=== PATIENT | male | born 1955 | race Caucasian/White ===

== ENCOUNTER → 2018-06-27 | Emergency (ER) | payer OTHER ==
[2018-06-27 09:57] LABS: ADD MAN DIFF? NO
[2018-06-27] MEDS: morphine 4 MG/ML VIAL IV (09:57)
[2018-06-27] MEDS: SOD CHLORIDE 0.9% 1,000 ML IV (09:57)
[2018-06-27] MEDS: ONDANSETRON 4 MG INJ IV (09:57)
[2018-06-27 09:58] LABS: BASOPHIL # 0.1 10^3/ul (0.0-0.1); BASOPHILS % 1.2 % (0.0-2.0); EOSINOPHILS # 0.4 10^3/ul (0.0-0.5); HEMATOCRIT 34.7 % (42.0-52.0); HEMOGLOBIN 11.1 g/dl (14.0-18.0); LYMPHOCYTES # 0.7 10^3/ul (0.8-2.9); LYMPHOCYTES % 10.8 % (15.0-51.0); MEAN CORPUSCULAR HEMOGLOBIN 31.3 pg (29.0-33.0); MEAN CORPUSCULAR VOLUME 97.7 fl (82.0-101.0); MEAN PLATELET VOLUME 9.5 fl (7.4-10.4); MONOCYTE # 0.7 10^3/ul (0.3-0.9); MONOCYTES % 10.7 % (0.0-11.0); NEUTROPHIL # 4.7 10^3/ul (1.6-7.5); NEUTROPHILS % 70.8 % (39.0-77.0); PLATELET COUNT 236 10^3/UL (140-415); RED BLOOD COUNT 3.55 10^6/ul (4.70-6.10); RED CELL DISTRIBUTION WIDTH 15.3 % (11.5-14.5)
[2018-06-27 09:58] LABS: WHITE BLOOD COUNT 6.7 10^3/ul (4.8-10.8)
[2018-06-27 10:18] LABS: INR 1.38; PROTIME 17.2 Sec (11.9-14.9); PT RATIO 1.3
[2018-06-27 10:27] LABS: ALANINE AMINOTRANSFERASE 29 IU/L (13-69); ALBUMIN 3.5 g/dl (3.3-4.9); ALBUMIN/GLOBULIN RATIO 0.94; ALKALINE PHOSPHATASE 70 IU/L (42-121); AMYLASE 49 U/L (11-123); ANION GAP 10 (8-16); ASPARTATE AMINO TRANSFERASE 22 IU/L (15-46); BILIRUBIN,INDIRECT 0.8 mg/dl (0-1.1); BILIRUBIN,TOTAL 0.8 mg/dl (0.2-1.3); BLOOD UREA NITROGEN 22 mg/dl (7-20); CALCIUM 8.8 mg/dl (8.4-10.2); CARBON DIOXIDE 21 mmol/L (21-31); CHLORIDE 114 mmol/L (97-110); CREATININE 1.25 mg/dl (0.61-1.24); GLUCOSE 104 mg/dl (70-220); LIPASE 46 U/L (23-300); POTASSIUM 4.4 mmol/L (3.5-5.1); SODIUM 141 mmol/L (135-144); TOTAL PROTEIN 7.2 g/dl (6.1-8.1)
[2018-06-27 10:37] LABS: TROPONIN-I 0.016 ng/ml (0.000-0.120)
== END | disposition home or self-care (01) ==
LOC: E/R 08:19
DX: N20.0 Calculus of kidney (principal); R40.2252 Coma scale, best verbal response, oriented, at arrival to emergency department; F17.210 Nicotine dependence, cigarettes, uncomplicated; I10 Essential (primary) hypertension; R40.2142 Coma scale, eyes open, spontaneous, at arrival to emergency department; R40.2362 Coma scale, best motor response, obeys commands, at arrival to emergency department; Z79.82 Long term (current) use of aspirin; Z95.0 Presence of cardiac pacemaker
CPT/HCPCS: 74176; 80053; 82150; 83690; 84484; 85025; 85610; 85730; 93005; 96361; 96374; 96375; 99285-25

== ENCOUNTER 2018-07-14 20:42 | Inpatient (IN) | payer OTHER ==
[2018-07-14 21:37] LABS: ADD MAN DIFF? NO
[2018-07-14 21:40] LABS: BASOPHIL # 0.1 10^3/ul (0.0-0.1); EOSINOPHILS # 0.6 10^3/ul (0.0-0.5); EOSINOPHILS % 7.6 % (0.0-7.0); HEMATOCRIT 39.1 % (42.0-52.0); HEMOGLOBIN 12.2 g/dl (14.0-18.0); LYMPHOCYTES % 11.7 % (15.0-51.0); MEAN CORPUSCULAR HGB CONC 31.2 g/dl (32.0-37.0); MEAN CORPUSCULAR VOLUME 96.1 fl (82.0-101.0); MEAN PLATELET VOLUME 9.9 fl (7.4-10.4); MONOCYTES % 12.6 % (0.0-11.0); NEUTROPHIL # 5.5 10^3/ul (1.6-7.5); NEUTROPHILS % 66.7 % (39.0-77.0); PLATELET COUNT 279 10^3/UL (140-415); RED BLOOD COUNT 4.07 10^6/ul (4.70-6.10); RED CELL DISTRIBUTION WIDTH 14.1 % (11.5-14.5)
[2018-07-14 21:40] LABS: WHITE BLOOD COUNT 8.3 10^3/ul (4.8-10.8)
[2018-07-14 22:02] LABS: ANION GAP 13 (8-16); BLOOD UREA NITROGEN 31 mg/dl (7-20); CALCIUM 9.2 mg/dl (8.4-10.2); CARBON DIOXIDE 29 mmol/L (21-31); CHLORIDE 103 mmol/L (97-110); CREATININE 1.06 mg/dl (0.61-1.24); GLUCOSE 209 mg/dl (70-220); SODIUM 140 mmol/L (135-144)
[2018-07-14] MEDS: NITROGLYCERIN (SL) 0.4 MG TAB SL (22:02)
[2018-07-14] MEDS: ASPIRIN 325 MG TAB PO (22:02)
[2018-07-14 22:13] LABS: B-TYPE NATRIURETIC PEPTIDE 8150 PG/ML (0-125); TROPONIN-I < 0.012 ng/ml (0.000-0.120)
[2018-07-14 22:16] LABS: POTASSIUM 5.4 mmol/L (3.5-5.1)
[2018-07-14 23:08] LABS: URINE BLOOD (Dip) POC Negative (NEGATIVE); URINE GLUCOSE (Dip) POC Negative (NEGATIVE); URINE KETONES (Dip) POC Negative (NEGATIVE); URINE LEUKOCYTE EST (Dip) POC Negative (NEGATIVE); URINE NITRITE (Dip) POC Negative (NEGATIVE); URINE TOTAL PROTEIN POC 1+ (NEGATIVE)
[2018-07-14] MEDS: FUROSEMIDE 20 MG INJ IV (23:18)
[2018-07-14] MEDS ORDERED: ONDANSETRON 4 MG INJ IV (23:30)
[2018-07-14] MEDS ORDERED: morphine 2 MG INJ IV (23:30)
[2018-07-14] MEDS ORDERED: NACL 0.9% 3 ML SYG IV (23:30)
[2018-07-14] MEDS ORDERED: BISACODYL (EC) 5 MG TAB PO (23:30)
[2018-07-14] MEDS ORDERED: ACETAMINOPHEN 325 MG TAB PO (23:30)
[2018-07-14] MEDS ORDERED: NITROGLYCERIN (SL) 0.4 MG TAB SL (23:30)
[2018-07-14] MEDS ORDERED: DOCUSATE SODIUM 100 MG CAP PO (23:30)
[2018-07-15 03:34] LABS: ADD MAN DIFF? NO
[2018-07-15 03:57] LABS: ALANINE AMINOTRANSFERASE 32 IU/L (13-69); ALBUMIN 3.5 g/dl (3.3-4.9); ALBUMIN/GLOBULIN RATIO 0.92; ALKALINE PHOSPHATASE 67 IU/L (42-121); ANION GAP 14 (8-16); ASPARTATE AMINO TRANSFERASE 31 IU/L (15-46); BILIRUBIN,INDIRECT 0.5 mg/dl (0-1.1); BILIRUBIN,TOTAL 0.5 mg/dl (0.2-1.3); BLOOD UREA NITROGEN 33 mg/dl (7-20); CALCIUM 9.1 mg/dl (8.4-10.2); CARBON DIOXIDE 29 mmol/L (21-31); CHLORIDE 101 mmol/L (97-110); CHOL/HDL RATIO 2.5 RATIO; CHOLESTEROL 109 mg/dl (100-200); CREATINE KINASE 36 IU/L (23-200); CREATININE 1.05 mg/dl (0.61-1.24); GLUCOSE 189 mg/dl (70-220); HDL CHOLESTEROL 43 mg/dl (30-78); LDL CHOLESTEROL,CALCULATED 59 mg/dl; MAGNESIUM 2.2 mg/dl (1.7-2.5); SODIUM 139 mmol/L (135-144); TOTAL PROTEIN 7.3 g/dl (6.1-8.1); TRIGLYCERIDES 37 mg/dl (0-149)
[2018-07-15] MEDS ORDERED: DEXTROSE 50% 50 ML SYRINGE IV ×2 (04:00)
[2018-07-15] MEDS ORDERED: GLUCOSE GEL 15 GRAM TUBE BUCCAL (04:00)
[2018-07-15] MEDS ORDERED: GLUCOSE GEL 15 GRAM TUBE PO ×2 (04:00)
[2018-07-15] MEDS ORDERED: GLUCAGON 1 MG INJ IM (04:00)
[2018-07-15 04:07] LABS: WHITE BLOOD COUNT 7.4 10^3/ul (4.8-10.8)
[2018-07-15 04:07] LABS: BASOPHIL # 0.1 10^3/ul (0.0-0.1); BASOPHILS % 1.2 % (0.0-2.0); EOSINOPHILS # 0.6 10^3/ul (0.0-0.5); EOSINOPHILS % 7.7 % (0.0-7.0); HEMATOCRIT 35.7 % (42.0-52.0); HEMOGLOBIN 11.2 g/dl (14.0-18.0); LYMPHOCYTES % 13.1 % (15.0-51.0); MEAN CORPUSCULAR HEMOGLOBIN 30.1 pg (29.0-33.0); MEAN CORPUSCULAR HGB CONC 31.4 g/dl (32.0-37.0); MONOCYTES % 13.9 % (0.0-11.0); NEUTROPHIL # 4.7 10^3/ul (1.6-7.5); NEUTROPHILS % 63.8 % (39.0-77.0); PLATELET COUNT 257 10^3/UL (140-415); RED BLOOD COUNT 3.72 10^6/ul (4.70-6.10)
[2018-07-15 04:09] LABS: CK INDEX 2.6; CK-MB 0.95 ng/ml (0.0-2.4); TROPONIN-I < 0.012 ng/ml (0.000-0.120)
[2018-07-15] MEDS ORDERED: ONDANSETRON (ODT) 4 MG TAB ODT (06:30)
[2018-07-15] MEDS: MULTIVIT/CA CARB/B CMPLX/FA TAB PO (08:45)
[2018-07-15] MEDS: FERROUS SULFATE (EC) 325 MG TAB PO (08:45)
[2018-07-15] MEDS: DOCUSATE SODIUM 100 MG CAP PO ×3 (08:45→20:23)
[2018-07-15] MEDS: ASPIRIN (EC) 81 MG TAB PO (08:45)
[2018-07-15] MEDS: INSULIN ASPART [NOVOLOG] 3 ML PEN SC ×4 (08:50→20:44)
[2018-07-15 10:44] LABS: CREATINE KINASE 52 IU/L (23-200)
[2018-07-15 10:57] LABS: CK INDEX 2.3; CK-MB 1.19 ng/ml (0.0-2.4)
[2018-07-15] MEDS ORDERED: morphine LIQ (10 MG/5 ML) CUP PO (17:00)
[2018-07-15] MEDS: FUROSEMIDE 20 MG INJ IV (17:54)
[2018-07-15] MEDS: LISINOPRIL 5 MG TAB PO (17:55)
[2018-07-15] MEDS: ATORVASTATIN 20 MG TAB PO (20:24)
[2018-07-16] MEDS: ACCU-CHEK XX (02:37)
[2018-07-16 05:49] LABS: ADD MAN DIFF? NO
[2018-07-16 05:58] LABS: BASOPHIL # 0.1 10^3/ul (0.0-0.1); BASOPHILS % 1.1 % (0.0-2.0); EOSINOPHILS # 0.6 10^3/ul (0.0-0.5); EOSINOPHILS % 8.3 % (0.0-7.0); HEMATOCRIT 36.8 % (42.0-52.0); HEMOGLOBIN 11.7 g/dl (14.0-18.0); LYMPHOCYTES # 0.9 10^3/ul (0.8-2.9); LYMPHOCYTES % 12.4 % (15.0-51.0); MEAN CORPUSCULAR HEMOGLOBIN 29.8 pg (29.0-33.0); MEAN CORPUSCULAR HGB CONC 31.8 g/dl (32.0-37.0); MEAN CORPUSCULAR VOLUME 93.9 fl (82.0-101.0); MEAN PLATELET VOLUME 10.3 fl (7.4-10.4); MONOCYTE # 0.8 10^3/ul (0.3-0.9); MONOCYTES % 11.5 % (0.0-11.0); NEUTROPHIL # 4.7 10^3/ul (1.6-7.5); NEUTROPHILS % 66.3 % (39.0-77.0); PLATELET COUNT 257 10^3/UL (140-415); RED BLOOD COUNT 3.92 10^6/ul (4.70-6.10); RED CELL DISTRIBUTION WIDTH 14.1 % (11.5-14.5)
[2018-07-16 05:58] LABS: WHITE BLOOD COUNT 7.1 10^3/ul (4.8-10.8)
[2018-07-16 06:29] LABS: CREATINE KINASE 46 IU/L (23-200)
[2018-07-16 06:31] LABS: FREE T4 (FREE THYROXINE) 1.19 ng/dl (0.78-2.44)
[2018-07-16 06:31] LABS: B-TYPE NATRIURETIC PEPTIDE 7530 PG/ML (0-125)
[2018-07-16 06:33] LABS: ALANINE AMINOTRANSFERASE 28 IU/L (13-69); ALBUMIN 3.5 g/dl (3.3-4.9); ALBUMIN/GLOBULIN RATIO 0.87; ALKALINE PHOSPHATASE 69 IU/L (42-121); ANION GAP 12 (8-16); ASPARTATE AMINO TRANSFERASE 30 IU/L (15-46); BLOOD UREA NITROGEN 30 mg/dl (7-20); CALCIUM 9.2 mg/dl (8.4-10.2); CARBON DIOXIDE 31 mmol/L (21-31); CHLORIDE 100 mmol/L (97-110); CHOL/HDL RATIO 2.9 RATIO; CHOLESTEROL 118 mg/dl (100-200); GLUCOSE 144 mg/dl (70-220); HDL CHOLESTEROL 40 mg/dl (30-78); LDL CHOLESTEROL,CALCULATED 63 mg/dl; MAGNESIUM 2.2 mg/dl (1.7-2.5); POTASSIUM 4.1 mmol/L (3.5-5.1); SODIUM 139 mmol/L (135-144); TOTAL PROTEIN 7.5 g/dl (6.1-8.1); TRIGLYCERIDES 74 mg/dl (0-149)
[2018-07-16 06:48] LABS: CK-MB 0.93 ng/ml (0.0-2.4); TROPONIN-I 0.027 ng/ml (0.000-0.120)
[2018-07-16] MEDS: INSULIN ASPART [NOVOLOG] 3 ML PEN SC ×4 (08:00→20:49)
[2018-07-16] MEDS: DOCUSATE SODIUM 100 MG CAP PO ×3 (09:00→20:46)
[2018-07-16] MEDS ORDERED: POLYMYXIN/BACITRACIN 1L IRRIG (11:05)
[2018-07-16] MEDS ORDERED: CEFAZOLIN 1 GM/50 ML (PMX) 100 ML IVPB (11:21)
[2018-07-16] MEDS ORDERED: MIDAZOLAM 1 MG/ML 2 ML INJ (11:21)
[2018-07-16] MEDS ORDERED: FENTAnyl 50 MCG/ML VIAL (11:21)
[2018-07-16] MEDS ORDERED: LIDOCAINE 1%/EPI 30 ML INJ (11:21)
[2018-07-16] MEDS ORDERED: HYDROmorphONE 2 MG/ML SYG (11:44)
[2018-07-16] MEDS ORDERED: morphine 2 MG INJ IV (12:30)
[2018-07-16] MEDS: FUROSEMIDE 20 MG INJ IV (17:49)
[2018-07-16] MEDS: ASPIRIN (EC) 81 MG TAB PO (17:49)
[2018-07-16] MEDS: MULTIVIT/CA CARB/B CMPLX/FA TAB PO (17:50)
[2018-07-16] MEDS: LISINOPRIL 5 MG TAB PO (17:51)
[2018-07-16] MEDS: FERROUS SULFATE (EC) 325 MG TAB PO (17:51)
[2018-07-16] MEDS: CEFAZOLIN 1 GM/50 ML (PMX) 50 ML IVPB ×2 (17:51→20:54)
[2018-07-16] MEDS: ATORVASTATIN 20 MG TAB PO (20:46)
[2018-07-17] MEDS: ACCU-CHEK XX (02:00)
[2018-07-17] MEDS: LORAZEPAM 0.5 MG TAB PO (03:33)
[2018-07-17] MEDS: CEFAZOLIN 1 GM/50 ML (PMX) 50 ML IVPB (05:50)
[2018-07-17 06:15] LABS: ADD MAN DIFF? NO
[2018-07-17 06:17] LABS: WHITE BLOOD COUNT 8.2 10^3/ul (4.8-10.8)
[2018-07-17 06:17] LABS: BASOPHIL # 0.1 10^3/ul (0.0-0.1); EOSINOPHILS # 0.5 10^3/ul (0.0-0.5); EOSINOPHILS % 6.3 % (0.0-7.0); HEMATOCRIT 38.1 % (42.0-52.0); HEMOGLOBIN 12.2 g/dl (14.0-18.0); LYMPHOCYTES # 0.9 10^3/ul (0.8-2.9); LYMPHOCYTES % 11.3 % (15.0-51.0); MEAN CORPUSCULAR HEMOGLOBIN 30.2 pg (29.0-33.0); MEAN CORPUSCULAR VOLUME 94.3 fl (82.0-101.0); MEAN PLATELET VOLUME 10.1 fl (7.4-10.4); MONOCYTES % 12.5 % (0.0-11.0); NEUTROPHIL # 5.7 10^3/ul (1.6-7.5); NEUTROPHILS % 68.7 % (39.0-77.0); PLATELET COUNT 270 10^3/UL (140-415); RED BLOOD COUNT 4.04 10^6/ul (4.70-6.10); RED CELL DISTRIBUTION WIDTH 13.9 % (11.5-14.5)
[2018-07-17 06:38] LABS: INR 1.23; PROTIME 15.7 Sec (11.9-14.9); PT RATIO 1.2
[2018-07-17 06:48] LABS: B-TYPE NATRIURETIC PEPTIDE 4640 PG/ML (0-125)
[2018-07-17 07:10] LABS: ALANINE AMINOTRANSFERASE 24 IU/L (13-69); ALBUMIN 3.7 g/dl (3.3-4.9); ALBUMIN/GLOBULIN RATIO 0.86; ALKALINE PHOSPHATASE 81 IU/L (42-121); ANION GAP 13 (8-16); ASPARTATE AMINO TRANSFERASE 32 IU/L (15-46); BILIRUBIN,INDIRECT 1.2 mg/dl (0-1.1); BILIRUBIN,TOTAL 1.2 mg/dl (0.2-1.3); BLOOD UREA NITROGEN 31 mg/dl (7-20); CALCIUM 9.2 mg/dl (8.4-10.2); CARBON DIOXIDE 31 mmol/L (21-31); CHLORIDE 100 mmol/L (97-110); CREATININE 0.93 mg/dl (0.61-1.24); GLUCOSE 121 mg/dl (70-220); MAGNESIUM 2.3 mg/dl (1.7-2.5); POTASSIUM 4.4 mmol/L (3.5-5.1); SODIUM 140 mmol/L (135-144)
[2018-07-17] MEDS: INSULIN ASPART [NOVOLOG] 3 ML PEN SC ×4 (08:00→20:48)
[2018-07-17] MEDS: REGADENOSON 0.4 MG/5 ML SYG (08:44)
[2018-07-17] MEDS: MULTIVIT/CA CARB/B CMPLX/FA TAB PO (09:40)
[2018-07-17] MEDS: ASPIRIN (EC) 81 MG TAB PO (09:40)
[2018-07-17] MEDS: FUROSEMIDE 20 MG INJ IV (09:40)
[2018-07-17] MEDS: FERROUS SULFATE (EC) 325 MG TAB PO (09:40)
[2018-07-17] MEDS: LISINOPRIL 5 MG TAB PO (09:40)
[2018-07-17] MEDS: DOCUSATE SODIUM 100 MG CAP PO ×3 (09:41→20:47)
[2018-07-17] MEDS ORDERED: LORAZEPAM 0.5 MG TAB PO (18:30)
[2018-07-17] MEDS: ATORVASTATIN 20 MG TAB PO (20:47)
[2018-07-18] MEDS: ACCU-CHEK XX (01:24)
[2018-07-18 06:20] LABS: ADD MAN DIFF? NO
[2018-07-18 06:31] LABS: BASOPHIL # 0.1 10^3/ul (0.0-0.1); BASOPHILS % 1.2 % (0.0-2.0); EOSINOPHILS # 0.6 10^3/ul (0.0-0.5); EOSINOPHILS % 7.4 % (0.0-7.0); HEMATOCRIT 38.5 % (42.0-52.0); HEMOGLOBIN 12.3 g/dl (14.0-18.0); LYMPHOCYTES # 0.9 10^3/ul (0.8-2.9); LYMPHOCYTES % 12.3 % (15.0-51.0); MEAN CORPUSCULAR HEMOGLOBIN 30.5 pg (29.0-33.0); MEAN CORPUSCULAR HGB CONC 31.9 g/dl (32.0-37.0); MEAN CORPUSCULAR VOLUME 95.5 fl (82.0-101.0); MEAN PLATELET VOLUME 10.2 fl (7.4-10.4); MONOCYTES % 13.1 % (0.0-11.0); NEUTROPHIL # 4.8 10^3/ul (1.6-7.5); NEUTROPHILS % 65.6 % (39.0-77.0); PLATELET COUNT 253 10^3/UL (140-415); RED BLOOD COUNT 4.03 10^6/ul (4.70-6.10); RED CELL DISTRIBUTION WIDTH 13.7 % (11.5-14.5)
[2018-07-18 06:31] LABS: WHITE BLOOD COUNT 7.4 10^3/ul (4.8-10.8)
[2018-07-18 06:50] LABS: ANION GAP 13 (8-16); BLOOD UREA NITROGEN 37 mg/dl (7-20); CALCIUM 9.1 mg/dl (8.4-10.2); CARBON DIOXIDE 29 mmol/L (21-31); CHLORIDE 102 mmol/L (97-110); CREATININE 1.09 mg/dl (0.61-1.24); GLUCOSE 109 mg/dl (70-220); POTASSIUM 4.5 mmol/L (3.5-5.1); SODIUM 139 mmol/L (135-144)
[2018-07-18] MEDS: INSULIN ASPART [NOVOLOG] 3 ML PEN SC (08:00)
[2018-07-18] MEDS: ASPIRIN (EC) 81 MG TAB PO (08:36)
[2018-07-18] MEDS: FERROUS SULFATE (EC) 325 MG TAB PO (08:36)
[2018-07-18] MEDS: DOCUSATE SODIUM 100 MG CAP PO (08:37)
[2018-07-18] MEDS: MULTIVIT/CA CARB/B CMPLX/FA TAB PO (08:37)
[2018-07-18] MEDS: LISINOPRIL 5 MG TAB PO ×2 (08:38→10:33)
[2018-07-18] MEDS: FUROSEMIDE 20 MG INJ IV (08:39)
[2018-07-18] MEDS ORDERED: LISINOPRIL 10 MG TAB PO (09:00)
[2018-07-18] MEDS ORDERED: FUROSEMIDE 40 MG TAB PO (09:00)
[2018-07-18] MEDS ORDERED: LISINOPRIL 5 MG TAB PO (09:00)
[2018-07-19] MEDS ORDERED: FUROSEMIDE 40 MG TAB PO (09:00)
[2018-07-19 12:53] LABS: PROCALCITONIN <0.10 ng/mL (<0.10)
== END 2018-07-18 12:15 | disposition home or self-care (01) | DRG 259 ==
LOC: E/R 20:42 → 6WM 22:51
PROC: 0JH606Z Insertion of Pacemaker, Dual Chamber into Chest Subcutaneous Tissue and Fascia, Open Approach (ICD-10-PCS; principal; 2018-07-16 11:13)
PROC: 0JPT0PZ Removal of Cardiac Rhythm Related Device from Trunk Subcutaneous Tissue and Fascia, Open Approach (ICD-10-PCS; 2018-07-16 11:13)
DX: I11.0 Hypertensive heart disease with heart failure (principal); I44.2 Atrioventricular block, complete; I50.21 Acute systolic (congestive) heart failure; Z45.010 Encounter for checking and testing of cardiac pacemaker pulse generator [battery]; D64.9 Anemia, unspecified; E78.5 Hyperlipidemia, unspecified; E11.36 Type 2 diabetes mellitus with diabetic cataract; F03.90 Unspecified dementia, unspecified severity, without behavioral disturbance, psychotic disturbance, mood disturbance, and anxiety; I25.10 Atherosclerotic heart disease of native coronary artery without angina pectoris; R10.9 Unspecified abdominal pain; I25.2 Old myocardial infarction; Z87.442 Personal history of urinary calculi
CPT/HCPCS: 33228; 33264; 36415; 71045; 74018; 76775; 78452; 80048; 80053; 80061; 81003; 82550; 82553; 82962; 83036; 83735; 83880; 84145; 84439; 84443; 84484; 85025; 85610; 93005; 93017; 93306; 97110; 97116; 97162; 97167; 97530; 97535; 99285-25

== ENCOUNTER 2019-02-26 05:36 | Day surgery (SDC) | payer MEDICARE, OTHER ==
[~2019-02-26 05:36] MED LIST: CYCLOPENTOLATE 2% 2 ML OPH RIGHT EYE
[2019-02-26 06:21] LABS: ADD MAN DIFF? NO
[2019-02-26] MEDS: PHENYLephrine 10% 5 ML OPH RIGHT EYE ×2 (06:27→07:51)
[2019-02-26] MEDS: CYCLOPENTOLATE 2% 2 ML OPH RIGHT EYE (06:27)
[2019-02-26] MEDS: NEPAFENAC 0.1% 3 ML OPH RIGHT EYE (06:28)
[2019-02-26] MEDS: MOXIFLOXACIN 0.5% 3 ML OPH RIGHT EYE (06:28)
[2019-02-26 06:30] LABS: WHITE BLOOD COUNT 6.1 10^3/ul (4.8-10.8)
[2019-02-26 06:30] LABS: BASOPHIL # 0.1 10^3/ul (0.0-0.1); BASOPHILS % 1.5 % (0.0-2.0); EOSINOPHILS # 0.5 10^3/ul (0.0-0.5); EOSINOPHILS % 7.6 % (0.0-7.0); HEMATOCRIT 38.3 % (42.0-52.0); HEMOGLOBIN 11.8 g/dl (14.0-18.0); LYMPHOCYTES # 1.1 10^3/ul (0.8-2.9); MEAN CORPUSCULAR HEMOGLOBIN 28.6 pg (29.0-33.0); MEAN CORPUSCULAR HGB CONC 30.8 g/dl (32.0-37.0); MEAN PLATELET VOLUME 10.1 fl (7.4-10.4); MONOCYTE # 0.7 10^3/ul (0.3-0.9); MONOCYTES % 11.7 % (0.0-11.0); NEUTROPHIL # 3.7 10^3/ul (1.6-7.5); NEUTROPHILS % 60.5 % (39.0-77.0); PLATELET COUNT 208 10^3/UL (140-415); RED BLOOD COUNT 4.12 10^6/ul (4.70-6.10); RED CELL DISTRIBUTION WIDTH 14.5 % (11.5-14.5)
[2019-02-26] MEDS ORDERED: MOXIFLOXACIN 0.5% 3 ML OPH RIGHT EYE (06:30)
[2019-02-26] MEDS ORDERED: EPINEPHrine 1 MG INJ (06:32)
[2019-02-26] MEDS ORDERED: LIDOCAINE 1% (MPF) 10 ML INJ (06:32)
[2019-02-26] MEDS ORDERED: TIMOLOL MALEATE/PF 0.5% OCCUDOSE (0.3 ML) (06:32)
[2019-02-26] MEDS ORDERED: NA BICARB 50 MEQ/50 ML VIAL (06:33)
[2019-02-26] MEDS ORDERED: LIDOCAINE 2% (SDV) 5 ML INJ ×2 (06:34→07:25)
[2019-02-26 06:50] LABS: INR 1.18; PROTIME 15.1 Sec (11.9-14.9); PT RATIO 1.2
[2019-02-26 06:51] LABS: PARTIAL THROMBOPLASTIN TIME 30.1 Sec (23.0-35.0)
[2019-02-26 06:52] LABS: CHOL/HDL RATIO 3.1 RATIO; HDL CHOLESTEROL 54 mg/dl (30-78); LDL CHOLESTEROL,CALCULATED 109 mg/dl; TRIGLYCERIDES 46 mg/dl (0-149)
[2019-02-26 06:52] LABS: CHOLESTEROL 172 mg/dl (100-200)
[2019-02-26 06:55] LABS: ALANINE AMINOTRANSFERASE 21 IU/L (13-69); ALBUMIN 4.1 g/dl (3.3-4.9); ALBUMIN/GLOBULIN RATIO 1.07; ALKALINE PHOSPHATASE 64 IU/L (42-121); ANION GAP 9 (5-13); ASPARTATE AMINO TRANSFERASE 28 IU/L (15-46); BILIRUBIN,INDIRECT 0.8 mg/dl (0-1.1); BILIRUBIN,TOTAL 0.8 mg/dl (0.2-1.3); CALCIUM 9.3 mg/dl (8.4-10.2); CARBON DIOXIDE 26 mmol/L (21-31); CHLORIDE 108 mmol/L (97-110); Estimated GFR 50 mL/min (>60); GLUCOSE 129 mg/dl (70-220); POTASSIUM 4.5 mmol/L (3.5-5.1); SODIUM 143 mmol/L (135-144); TOTAL PROTEIN 7.9 g/dl (6.1-8.1)
[2019-02-26 07:04] LABS: BLOOD UREA NITROGEN 39 mg/dl (7-20); CREATININE 1.42 mg/dl (0.61-1.24)
[2019-02-26] MEDS ORDERED: PROPOFOL 20 ML (07:25)
[2019-02-26] MEDS ORDERED: ALBUTEROL 0.083% (NEB) 2.5 MG/3 ML AMP HHN (07:30)
[2019-02-26] MEDS ORDERED: ACETAMINOPHEN 500 MG TAB PO (07:30)
[2019-02-26] MEDS ORDERED: DIPHENHYDRAMINE 50 MG INJ IV (07:30)
[2019-02-26] MEDS ORDERED: OXYCODONE/ACETAMINOPHEN (5/325) TAB PO (07:30)
[2019-02-26] MEDS ORDERED: LABETALOL HCL 20MG INJ IV (07:30)
[2019-02-26] MEDS ORDERED: hydrALAzine 20 MG INJ IV (07:30)
[2019-02-26] MEDS ORDERED: ACETAMINOPHEN 325 MG TAB PO (07:30)
[2019-02-26] MEDS ORDERED: FENTAnyl 50 MCG/ML VIAL IV (07:30)
[2019-02-26] MEDS ORDERED: ONDANSETRON 4 MG INJ IV (07:30)
[2019-02-26] MEDS: TIMOLOL 0.5% 5 ML OPH RIGHT EYE (07:51)
[2019-02-26] MEDS: LIDOCAINE 1% (MPF) 10 ML INJ INJ (07:51)
== END 2019-02-26 09:30 | disposition home or self-care (01) ==
LOC: SDS 05:36
DX: H25.11 Age-related nuclear cataract, right eye (principal); I25.10 Atherosclerotic heart disease of native coronary artery without angina pectoris; I11.0 Hypertensive heart disease with heart failure; I50.9 Heart failure, unspecified; E11.9 Type 2 diabetes mellitus without complications
CPT/HCPCS: 66984; 71045; 80053; 80061; 82962; 85025; 85610; 85730